=== PATIENT | female | born 1940 | race Caucasian/White ===

== ENCOUNTER 2021-05-01 19:24 | Emergency (ER) | payer MEDICARE ==
--- NOTE | 2021-05-01 19:48 | ERPHSYRPT ---
- History of Present Illness Time Seen by Provider: 05/01/21 19:44 Source: patient, family Exam Limitations: no limitations Patient Subjective Stated Complaint: to er c/o syncopal episode and possible stroke. pt was found outside on the ground per family and was there for unknown amount of time. pt here per EMS with one episode of vomiting and thick oral secretions that pt is having difficulty clearing. Triage Nursing Assessment: pt arrives p/w/d frail, a@ox3. PT has weakness noted to kelli ue though equal, stroke scale negative though pt does have garbled speech present may be due to thick oral secretions pt is having difficulty clearing has required suctioning multiple times. pt very drowsy though easily arousable. dizziness noted with any movement. bbs coarse and exp wheezing noted Physician History: pt was found down in yard by family and reports she was out pulling weeds and got weak. No hx trauma. full ROM without pain for all ext. No wounds. abd soft nontender. Hx lung cancer and has thick secretions. dizziness with motion. Timing/Duration: today Severity: moderate Modifying Factors: Improves With: movement Associated Symptoms: nausea, vomiting Allergies/Adverse Reactions: acetaminophen [From Vicodin] Adverse Reaction (Verified 05/01/21 19:44) hydrocodone [From Vicodin] Adverse Reaction (Verified 05/01/21 19:44) Travel Risk - International Travel Have you traveled outside of the country in past 3 weeks: No - Coronavirus Screening Are you exhibiting any of the following symptoms?: No Close contact with a COVID-19 positive Pt in past 14-21 Days: No - Vaccine Status Have you recieved a Covid-19 vaccination: Yes Csw: [employer] - Vaccination Dates Date of 2cond Vaccination (if applicable): unknown - Review of Systems Constitutional: No Fever, No Chills Eyes: No Symptoms Ears, Nose, & Throat: No Symptoms Respiratory: Cough, Dyspnea Cardiac: No Chest Pain, No Edema, No Syncope Abdominal/Gastrointestinal: No Abdominal Pain, No Nausea, No Vomiting, No Di arrhea Genitourinary Symptoms: No Dysuria Musculoskeletal: No Back Pain, No Neck Pain Skin: No Rash Neurological: No Dizziness, No Focal Weakness, No Sensory Changes Psychological: No Symptoms Endocrine: No Symptoms Hematologic/Lymphatic: No Symptoms Immunological/Allergic: No Symptoms All Other Systems: Reviewed and Negative - Past Medical History Neurological History: No Pertinent History Cardiac History: Hypertension Respiratory History: No Pertinent History Endocrine Medical History: No Pertinent History Musculoskeletal History: No Pertinent History Other Medical History: LUNG CA W/ L LOWER LOBE 1/3 RESECTION 2005; PT. HAS FEMORAL ARTERY STENT W/ REPLACEMENT 2014; AORTIC ROOT STABILIZATION - Past Surgical History Past Surgical History: No - Social History Smoking Status: Former smoker Drug Use: none - Nursing Vital Signs Nursing Vital Signs: Initial Vital Signs Temperature 96.8 F 05/01/21 19:25 Pulse Rate 67 05/01/21 19:25 Respiratory Rate 18 05/01/21 19:25 Blood Pressure 186/113 05/01/21 19:25 O2 Sat by Pulse Oximetry 89 L 05/01/21 19:25 - Physical Exam General Appearance: moderate distress, alert Eye Exam: PERRL/EOMI, eyes nml inspection Ears, Nose, Throat Exam: normal ENT inspection, TMs normal, pharynx normal, moist mucous membranes Neck Exam: normal inspection, non-tender, supple, full range of motion Respiratory Exam: airway intact, prolonged expirations, rhonchi, wheezing, No respiratory distress Cardiovascular Exam: regular rate/rhythm, normal heart sounds, normal peripheral pulses, tachycardia Gastrointestinal/Abdomen Exam: soft, normal bowel sounds, No tenderness, No mass Pelvic Exam: deferred Rectal Exam: deferred Back Exam: normal inspection, normal range of motion, No CVA tenderness, No vertebral tenderness Extremity Exam: normal inspection, normal range of motion, pelvis stable Neurologic Exam: alert, oriented x 3, cooperative, normal mood/affect, nml cerebellar function, nml station & gait, sensation nml, No motor deficits Skin Exam: normal color, warm, dry, No rash Lymphatic Exam: No adenopathy SpO2 Interpretation: hypoxic SpO2: 89 O2 Delivery: Room Air - Course Nursing assessment & vital signs reviewed: Yes EKG Interpreted by Me: Sinus Rhythm, Non-specific ST Changes, Other (apcs lvh) - CT Exams Head CT Interpretation: Tele-radiologist Report, Other (small intracrainial bleeds) Ordered Tests: Active Orders 24 hr Category Date Time Status Ceramics Test Engineer STAT Care 05/01/21 19:51 Active EKG-ER Only STAT Care 05/01/21 19:49 Active IV Insertion STAT Care 05/01/21 19:49 Active NPO (ED) STAT Care 05/01/21 19:49 Active Oxygen-ED Only Nasal Cannula 3 lpm Care 05/01/21 19:50 Active CHEST WITH CONTRAST [CT] Stat Exams 05/01/21 19:48 Taken HEAD WITHOUT CONTRAST [CT] Stat Exams 05/01/21 19:48 Taken CBC W DIFF Stat Lab 05/01/21 20:11 Completed CMP Stat Lab 05/01/21 20:11 Completed D-DIMER QUANTITATIVE Stat Lab 05/01/21 20:11 Completed FECAL OCCULT BLOOD - SCREENING Stat Lab 05/01/21 Ordered Lactic Acid Stat Lab 05/01/21 20:02 Completed NT PRO BNP Routine Lab 05/01/21 20:11 Completed TROPONIN Q3H Lab 05/01/21 20:11 Completed TROPONIN Q3H Lab 05/01/21 23:00 Ordered TROPONIN Q3H Lab 05/02/21 02:00 Ordered TROPONIN Q3H Lab 05/02/21 05:00 Ordered TROPONIN Q3H Lab 05/02/21 08:00 Ordered UA W/RFX UR CULTURE Stat Lab 05/01/21 19:50 Ordered Respiratory Therapy Assessment DAILY RT 05/01/21 19:58 Completed Medication Summary Generic Name Dose Route Start Last Admin Trade Name Freq PRN Reason Stop Dose Admin Sodium Chloride 1,000 mls @ 100 mls/hr 05/01/21 20:00 05/01/21 20:23 Sodium Chloride 0.9% 1000 Ml IV 05/31/21 19:59 100 mls/hr .Q10H ABBEY Administration Nicardipine HCl 25 mg/ Sodium 250 mls @ 0 mls/hr 05/01/21 21:30 Chloride IV 05/31/21 21:29 .Q0M PRN TITRATE FOR BLOOD PRESSURE Protocol Titrate Discontinued Medications Generic Name Dose Route Start Last Admin Trade Name Freq PRN Reason Stop Dose Admin Albuterol/Ipratropium 3 ml 05/01/21 19:50 05/01/21 20:04 Duoneb 0.5-3 Mg/3 Ml Neb IH 05/01/21 19:51 3 ml STAT ONE Administration Albuterol/Ipratropium Confirm 05/01/21 19:58 Duoneb 0.5-3 Mg/3 Ml Neb Administered 05/01/21 19:59 Dose 3 ml IH .STK-MED ONE Methylprednisolone Sodium 0 mg 05/01/21 19:50 05/01/21 20:24 Succinate 125 mg/ Sterile IV 05/01/21 19:51 125 mg Water 2 ml STAT ONE Administration Sodium Chloride Confirm 05/01/21 21:32 Sodium Chloride 0.9% 250 Ml Administered 05/01/21 21:33 Dose 250 mls @ ud IV .STK-MED ONE Methylprednisolone Sodium Succinate Confirm 05/01/21 20:22 Solu-Medrol Administered 05/01/21 20:23 Dose 125 mg .ROUTE .STK-MED ONE Nicardipine HCl Confirm 05/01/21 21:29 Cardene 25 Mg/10 Ml Administered 05/01/21 21:30 Dose 25 mg IV .STK-MED ONE Ondansetron HCl Confirm 05/01/21 20:22 Zofran 4 Mg/2 Ml Vial Administered 05/01/21 20:23 Dose 4 mg .ROUTE .STK-MED ONE Ondansetron HCl 4 mg 05/01/21 21:28 05/01/21 21:28 Zofran 4 Mg/2 Ml Vial IV 05/01/21 21:29 4 mg STAT ONE Administration Sterile Water Confirm 05/01/21 20:22 Sterile H2o 10 Ml Administered 05/01/21 20:23 Dose 10 ml IJ .STK-MED ONE Lab/Rad Data: Laboratory Result Diagrams 05/01/21 20:11 05/01/21 20:11 Laboratory Results 05/01/21 05/01/21 05/01/21 Range/Units 20:11 20:11 20:11 WBC (4.0-10.5) K/mm3 RBC (4.1-5.4) M/mm3 Hgb (12.0-16.0) gm/dl Hct (35-47) % MCV (78-100) fl MCH (26-32) pg MCHC (32-36) g/dl RDW (11.5-14.0) % Plt Count (150-450) K/mm3 MPV (7.5-11.0) fl Gran % (36.0-66.0) % Eos # (Auto) (0-0.5) Absolute Lymphs (auto) (1.0-4.6) Absolute Monos (auto) (0.0-1.3) Lymphocytes % (24.0-44.0) % Monocytes % (0.0-12.0) % Eosinophils % (0.00-5.0) % Basophils % (0.0-0.4) % Absolute Granulocytes (1.4-6.9) Basophils # (0-0.4) D-Dimer 6839 H* (215-500) ng/mL Sodium 140 (137-145) mmol/L Potassium 3.5 (3.5-5.1) mmol/L Chloride 98 (98-107) mmol/L Carbon Dioxide 32 H (22-30) mmol/L Anion Gap 13.6 (5-15) MEQ/L BUN 22 H (7-17) mg/dL Creatinine 0.74 (0.52-1.04) mg/dL Estimated GFR > 60.0 ML/MIN Glucose 189 H (74-106) mg/dL Lactic Acid (0.4-2.0) Calcium 9.8 (8.4-10.2) mg/dL Total Bilirubin 0.70 (0.2-1.3) mg/dL AST 50 H (14-36) U/L ALT 22 (0-35) U/L Alkaline Phosphatase 59 (38-126) U/L Troponin I < 0.012 (0.000-0.034) ng/mL NT-Pro-B Natriuret Pep 2870 H (0-1800) pg/mL Serum Total Protein 7.4 (6.3-8.2) g/dL Albumin 4.6 (3.5-5.0) g/dL 05/01/21 05/01/21 Range/Units 20:11 20:02 WBC 8.9 (4.0-10.5) K/mm3 RBC 4.98 (4.1-5.4) M/mm3 Hgb 15.3 (12.0-16.0) gm/dl Hct 49.1 H (35-47) % MCV 98.6 (78-100) fl MCH 30.7 (26-32) pg MCHC 31.2 L (32-36) g/dl RDW 13.8 (11.5-14.0) % Plt Count 175 (150-450) K/mm3 MPV 9.5 (7.5-11.0) fl Gran % 82.0 H (36.0-66.0) % Eos # (Auto) 0.03 (0-0.5) Absolute Lymphs (auto) 0.99 L (1.0-4.6) Absolute Monos (auto) 0.58 (0.0-1.3) Lymphocytes % 11.1 L (24.0-44.0) % Monocytes % 6.5 (0.0-12.0) % Eosinophils % 0.3 (0.00-5.0) % Basophils % 0.1 (0.0-0.4) % Absolute Granulocytes 7.32 H (1.4-6.9) Basophils # 0.01 (0-0.4) D-Dimer (215-500) ng/mL Sodium (137-145) mmol/L Potassium (3.5-5.1) mmol/L Chloride (98-107) mmol/L Carbon Dioxide (22-30) mmol/L Anion Gap (5-15) MEQ/L BUN (7-17) mg/dL Creatinine (0.52-1.04) mg/dL Estimated GFR ML/MIN Glucose (74-106) mg/dL Lactic Acid 1.6 (0.4-2.0) Calcium (8.4-10.2) mg/dL Total Bilirubin (0.2-1.3) mg/dL AST (14-36) U/L ALT (0-35) U/L Alkaline Phosphatase (38-126) U/L Troponin I (0.000-0.034) ng/mL NT-Pro-B Natriuret Pep (0-1800) pg/mL Serum Total Protein (6.3-8.2) g/dL Albumin (3.5-5.0) g/dL - Progress Progress: improved, re-examined Progress Note: 05/01/21 20:33 re-exam noted some weakness on left side - so stroke alert is called. and NIH scale and neuro consult placed.and CT expedited. 05/01/21 20:42 discussed with neuro and NIH score is 3 . 05/01/21 21:37 discussed with Neuro and ER DrAakash at and pt and will transfer for definitive care with chaitanya blair to control BP. Discussed with DrAakash: Other (Dr. Lopez at [facility]) Will see patient in: ED Counseled pt/family regarding: lab results, diagnosis, need for follow-up, rad results - Departure Departure Disposition: Transfer Clinical Impression: ICH (intracerebral hemorrhage) Condition: Good Critical Care Time: Yes Critical Care Time(excluding separately billable procedures): Critical 30-74 mins (60 minutes plus for CVA protocol) Referrals: LEAH PUENTE [Primary Care Provider] -
[2021-05-01] MEDS ORDERED: solu-MEDROL 125 MG, Sterile H2O 10 ml 2 ML IV ONE ×2 (19:50)
[2021-05-01] MEDS ORDERED: DUONEB 0.5-3 MG/3 ml Neb IH ONE ×2 (19:50→19:58)
[2021-05-01] MEDS ORDERED: Sodium Chloride 0.9% 1000 ML 1,000 ML IV SCH (20:00)
[2021-05-01 20:17] LABS: Absolute Neutrophil Ct (ANC) 7.32 (1.4-6.9); BASOPHIL % 0.1 % (0.0-0.4); Basophil (Absolute #) 0.01 (0-0.4); Eosinophil % 0.3 % (0.00-5.0); Eosinophil (Absolute #) 0.03 (0-0.5); Hematocrit 49.1 % (35-47); Hemoglobin 15.3 gm/dl (12.0-16.0); Lymphocyte (Absolute #) 0.99 (1.0-4.6); Lymphocytes % 11.1 % (24.0-44.0); Mean Cell Volume 98.6 fl (78-100); Mean Corpuscular Hemoglobin 30.7 pg (26-32); Mean Corpuscular Hgb Concent. 31.2 g/dl (32-36); Mean Platelet Volume 9.5 fl (7.5-11.0); Monocyte (Absolute #) 0.58 (0.0-1.3); Monocytes % 6.5 % (0.0-12.0); Platelet Count 175 K/mm3 (150-450); Red Blood Count 4.98 M/mm3 (4.1-5.4); Red Cell Distribution Width 13.8 % (11.5-14.0); White Blood Count 8.9 K/mm3 (4.0-10.5)
[2021-05-01] MEDS ORDERED: Zofran 4 MG/2 ML VIAL ONE (20:22)
[2021-05-01] MEDS ORDERED: Sterile H2O 10 ml IJ ONE (20:22)
[2021-05-01] MEDS ORDERED: Sodium Chloride 0.9% 1000 ML 1,000 ML ONE (20:22)
[2021-05-01] MEDS ORDERED: solu-MEDROL ONE (20:22)
[2021-05-01 20:26] LABS: ALBUMIN 4.6 g/dL (3.5-5.0); ALKALINE PHOSPHATASE 59 U/L (38-126); ANION GAP 13.6 MEQ/L (5-15); BLOOD UREA NITROGEN 22 mg/dL (7-17); CHLORIDE 98 mmol/L (98-107); Calcium 9.8 mg/dL (8.4-10.2); Carbon Dioxide 32 mmol/L (22-30); Creatinine 1 0.74 mg/dL (0.52-1.04); EST GLOMERULAR FILTRATION RATE > 60.0 ML/MIN; Glucose 189 mg/dL (74-106); Potassium 3.5 mmol/L (3.5-5.1); SGOT/AST 50 U/L (14-36); SGPT/ALT 22 U/L (0-35); SODIUM 140 mmol/L (137-145); Total Protein 7.4 g/dL (6.3-8.2)
[2021-05-01 20:54] LABS: NT PRO BNP 2870 pg/mL (0-1800); TROPONIN < 0.012 ng/mL (0.000-0.034)
[2021-05-01] MEDS ORDERED: Zofran 4 MG/2 ML VIAL IV ONE (21:28)
[2021-05-01] MEDS ORDERED: CARDENE 25 MG/10 ML IV ONE (21:29)
[2021-05-01] MEDS ORDERED: CARDENE 25 MG/10 ML*** 25 MG in Sodium Chloride 0.9% 250 ML 240 ML IV PRN (21:30)
[2021-05-01] MEDS ORDERED: Sodium Chloride 0.9% 250 ML 250 ML IV ONE ×2 (21:32→21:43)
[2021-05-01 21:39] VITALS: O2SAT 89
[2021-05-01 21:59] VITALS: BP 168/88; PULSE 74
--- NOTE | 2021-05-02 07:20 | XRAY ---
Indication: Found on ground. Stroke. Multiple contiguous axial images obtained through the head without contrast. Comparison: None Age-appropriate global atrophy and moderate periventricular degenerative micro-ischemia bilaterally. 1.1 x 1.0 x 0.9 cm acute parenchymal hemorrhage in the right posterior temporal lobe. Additional 0.9 x 1.6 x 1.1 cm acute parenchymal hemorrhage left cerebellum. No mass effect/midline shift. Fourth ventricle is midline without hydrocephalus. Bony calvarium intact. Visualized paranasal sinuses and mastoid air cells are clear. Impression: 1. Small acute parenchymal hemorrhage right temporal lobe and left cerebellum. 2. Age-related atrophy and degenerative micro-ischemia. Comment: Preliminary interpretation made by C. No critical discrepancy.
--- NOTE | 2021-05-02 07:26 | XRAY ---
Indication: Elevated d-dimer. Multiple contiguous axial images obtained through the chest using 80 cc Isovue-370 contrast and PE protocol. Comparison: None There is satisfactory opacification of the pulmonary arteries to include the lobar and segmental branches. No pulmonary embolus. Enlarged main pulmonary arteries favor pulmonary artery hypertension. Heart is enlarged. Aorta is moderately arteriosclerotic without aneurysm/dissection. No pathologic mediastinal/hilar lymphadenopathy. Right lower lobe bronchi included with fluid leveling, probable mucous plugging. Lungs demonstrate marked diffuse pulmonary emphysema, tiny calcified granulomas bilaterally, and scattered subsegmental atelectasis/scarring greatest right lower lobe. No infiltrates or effusion. Bony thorax demonstrates osteopenia, mild/moderate degenerative changes throughout the spine, and sternal fixation plate/wires. Limited upper abdomen unremarkable. Impression: 1. Negative pulmonary embolus. Incidental pulmonary artery hypertension. 2. Bronchial occlusion right lower lobe with fluid leveling, probable mucous plugging. Endobronchial mass not completely excluded. 3. Pulmonary emphysema, atelectasis/scarring, chronic bony findings, and old granulomatous disease. Comment: Preliminary interpretation made by [facility]. No critical discrepancy.
== END 2021-05-01 22:00 | disposition short-term general hospital (02) ==
LOC: ED 19:24
DX: I62.9 Nontraumatic intracranial hemorrhage, unspecified (principal); I10 Essential (primary) hypertension
CPT/HCPCS: 36415; 70450; 71260; 80053; 83605; 83880; 84484; 85025; 85379; 94640; 96374; 96375; 99284; 99291; J2405; J2930; A9270-GY

== ENCOUNTER 2022-10-19 12:45 | Emergency (ER) | payer MEDICARE ==
--- NOTE | 2022-10-19 12:47 | ERPHSYRPT ---
- History of Present Illness Time Seen by Provider: 10/19/22 12:47 Source: patient, EMS Exam Limitations: no limitations Physician History: This is an 82-year-old white female patient who is a resident at [facility]. 3 days ago, the patient fell hitting her head, left side of her face and ear and complains of headache, neck pain, left shoulder pain and left hip pain. Patient states there was not much pain and she was ambulating and moving around fine and that is why she did not come in on the day she fell 3 days ago. However, over the last few days her symptoms of pain have worsened. Patient has a history of spontaneous intracranial head bleeds as well. She is not on any anticoagulation but apparently takes a baby aspirin daily. She has a history of stroke, hypertension, peripheral vascular disease and oxygen dependent COPD. Patient currently denies chest pain or shortness of breath. She has no abdominal pain. Occurred: days ago (3) Reason for Fall: unknown Injuries/Pain Location: head, face (Left side), neck (Left side), upper extremity (Left shoulder), lower extremity (Left hip) Loss of Consciousness: no loss of consciousness Quality: aching Severity of Pain-Max: mild Severity of Pain-Current: mild (To moderate) Modifying Factors: Improves With: movement Associated Symptoms (Fall): extremity injury (Left hip), neck pain, trouble walking Allergies/Adverse Reactions: acetaminophen [From Vicodin] Adverse Reaction (Verified 10/19/22 13:25) hydrocodone [From Vicodin] Adverse Reaction (Verified 10/19/22 13:25) Travel Risk - International Travel Have you traveled outside of the country in past 3 weeks: No - Coronavirus Screening Are you exhibiting any of the following symptoms?: No Close contact with a COVID-19 positive Pt in past 14-21 Days: No - Vaccine Status Have you recieved a Covid-19 vaccination: Yes 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: [employer] - Vaccination Dates Date of 2cond Vaccination (if applicable): unknown - Review of Systems Constitutional: No Symptoms Eyes: No Symptoms Ears, Nose, & Throat: No Symptoms Respiratory: No Symptoms Cardiac: No Symptoms Abdominal/Gastrointestinal: No Symptoms Genitourinary Symptoms: No Symptoms Musculoskeletal: Fall, Injury (Left hip and left shoulder) Skin: Other (Ecchymosis swelling left side of her face left ear left lateral neck) Neurological: Headache Psychological: No Symptoms Endocrine: No Symptoms Hematologic/Lymphatic: No Symptoms Immunological/Allergic: No Symptoms All Other Systems: Reviewed and Negative - Past Medical History Pertinent Past Medical History: Yes Neurological History: Stroke Cardiac History: Hypertension, Peripheral Vascular Disease Respiratory History: COPD, Other Endocrine Medical History: No Pertinent History Musculoskeletal History: Fractures Other Medical History: HX OF LUNG CANCER WITH 1/3 LEFT LOWER LOBE RESECTION. HX OF FEMORAL ARTER STENT AND AORTIC ROOT STABILIZATION 2014. ? STROKE IN 04/2021. WAS FOUND IN YARD WITH GARBLED SPEECH BUT NO RESIDUAL. HX - Past Surgical History Past Surgical History: Yes Respiratory: Lobectomy - Social History Smoking Status: Former smoker Drug Use: none - Nursing Vital Signs Nursing Vital Signs: Initial Vital Signs Temperature 97.1 F 10/19/22 12:53 Pulse Rate 91 H 10/19/22 12:53 Blood Pressure 147/68 10/19/22 12:53 O2 Sat by Pulse Oximetry 91 L 10/19/22 12:53 Pain Scale Pain Intensity 0 - Zack Coma Score Best Eye Response ([place]): (4) open spontaneously Best Verbal Response ([place]): (5) oriented Best Motor Response (Zack): (6) obeys commands Zack Total: 15 - Physical Exam General Appearance: no apparent distress, alert, anxiety, cachetic Head Injury: tenderness (Left side of head) Eye Exam: PERRL/EOMI, eyes nml inspection ENT Exam: airway nml, nml ext.inspection, No evidence of ENT injury Neck Exam: supple, trachea midline, full range of motion, normal alignment, muscle spasm (Left paraspinous muscle), pain on movement of neck (Left side), tenderness (Left lateralParaspinous muscle with ecchymosis present laterally on the left side), No subcutaneous emphysema, No c-collar in place Respiratory/Chest Exam: chest tenderness, normal breath sounds, No respiratory distress, No ecchymosis, No crepitus Cardiovascular Exam: normal heart sounds, regular rate/rhythm Gastrointestinal Exam: soft, normal bowel sounds, No tenderness Rectal Exam: not done Back Exam: normal inspection, normal range of motion, No CVA tenderness, No vertebral tenderness Extremity Exam: normal inspection, limited range of motion (Secondary to left hip pain), hip tenderness (Left), tenderness (Left shoulder with ecchymosis) Neurologic Exam: alert, oriented x 3, cooperative, credit representative II-XII nml as tested, normal mood/affect Skin Exam: ecchymosis (Skin as stated above) SpO2 Interpretation: hypoxic O2 Delivery: Room Air (Patient wears 2 to 4 L of oxygen via nasal cannula. She has been weaning herself off of this oxygen and presented without oxygen in place. Patient has COPD that is supposed to be treated with oxygen and she has not been wearing it.) - Course Nursing assessment & vital signs reviewed: Yes Ordered Tests: Active Orders 24 hr Category Date Time Status CERVICAL SPINE WO CONTRAST [CT] Stat Exams 10/19/22 12:56 Completed FACIAL BONES WO CONTRAST [CT] Stat Exams 10/19/22 12:56 Completed HEAD WITHOUT CONTRAST [CT] Stat Exams 10/19/22 12:56 Completed HIP UNI (2V) INCL PEL IF DONE Stat Exams 10/19/22 13:05 Completed SHOULDER Stat Exams 10/19/22 13:05 Completed - Progress Progress: pain not gone completely, re-examined Progress Note: 10/19/22 14:18 X-ray of left shoulder shows no fracture and no dislocation. X-ray left hip shows no fracture or dislocation. CT scan of head without contrast shows a nonacute senile brain. CT scan of facial bones shows no acute fracture or dislocation. CT scan of cervical spine shows no acute fracture or subluxation. There are multiple levels of degenerative changes. This patient's medical issues were 1 of moderate complexity given the fact that the patient has fallen and there were several different areas of pain and swelling and ecchymosis. Based on the patient's complaint and review of the patient's medical history and drug allergies and based on the patient's physical findings on examination we opted for the above x-rays. The results of the x- ray reports were reviewed by me. I reviewed these results with the patient. Patient has no acute fracture or acute subluxation/dislocation of the areas that were x-rayed. Patient will be discharged back to her nursing facility without changes to her orders. Counseled pt/family regarding: diagnosis, need for follow-up, rad results Medical Desision Making - Independent Historian Additional History obtained from: Shipping Receiving Clerk/EMT - External Record(s) Reviewed Records reviewed as a part of evaluation & management: halfway - Discussion of managment Reviewed:: Test results Agreed on:: Treatment plan - Diagnostic Testing Radiological Interpretation: Reviewed by me, Teleradiologist Report - Risk of complications Low Risk: Low risk of morbidity from additional dx testing or treatment - Departure Departure Disposition: Home Clinical Impression: Fall with injury, Multiple contusions, Ecchymosis Condition: Stable Critical Care Time: No Referrals: MIKIE BLANCHARD OF [Primary Care Provider] - Follow up/PCP as directed Additional Instructions: Continue same orders. Follow-up with primary care physician for further evaluation management.
--- NOTE | 2022-10-19 13:33 | XRAY ---
Indication: Status post fall. Multiple contiguous axial images obtained through the head without contrast. Comparison: May 01, 2021 Again age-appropriate global atrophy with moderate periventricular degenerative micro-ischemia bilaterally. No acute intracranial hemorrhage, abnormal extra-axial fluid collection, or mass effect. Fourth ventricle is midline without hydrocephalus. Bony calvarium intact. Visualized paranasal sinuses and mastoid air cells are clear. Impression: Nonacute senile brain.
--- NOTE | 2022-10-19 13:37 | XRAY ---
Indication: Status post fall. Left scalp and facial hematoma. Multiple contiguous axial images obtained through the cervical spine. Sagittal and coronal reformatted images obtained. Comparison: None Several images are slightly degraded by motion artifact. Osseous structures demineralized. Axial images grossly negative for acute fracture, suspicious bony lesions, or spinal canal stenosis. C2-C3 congenital fusion. Mild/moderate multilevel degenerative endplate spurring. Facets are symmetric. Sagittal and coronal reformatted images demonstrates mild lordotic reversal centered at C3-C4. C3-C7 disc space loss. No acute compression fracture, subluxation, or jumped facet. Normal appearing craniocervical junction. Visualized noncontrasted soft tissues demonstrates moderate scattered carotid calcifications bilaterally, biapical postsurgical scarring with suture material, and pulmonary emphysema. Impression: 1. Motion artifact. 2. Cervical lordotic reversal, positional versus paraspinal spasm. Grossly negative acute fracture/subluxation. 3. Osteopenia, multilevel degenerative changes, bilateral carotid calcifications, pulmonary emphysema, and biapical postsurgical changes.
--- NOTE | 2022-10-19 13:39 | XRAY ---
Indication: Status post fall. Left scalp and facial hematoma. Multiple contiguous axial images obtained through the facial bones spine. Sagittal and coronal reformatted images obtained. Comparison: None Osseous structures demineralized. Patient is edentulous. Axial images negative for acute fracture, suspicious bony lesions, or debris foreign body. Orbits including rib, mckoy, and floors are intact. Paranasal sinuses and nasal passages are clear. Mild nasal septal deviation to the right. Visualized noncontrasted soft tissues including orbits are unremarkable. CT head and CT cervical spine reported separately. Impression: Osteopenia and nasal septal deviation. Remaining CT facial bones negative.
--- NOTE | 2022-10-19 13:47 | XRAY ---
Indication: Status post fall. Comparison: None 3 view left shoulder demonstrates osteopenia, tiny pulmonary calcified granulomas, small axillary calcified node, moderate scattered arteriosclerotic calcifications, and partially visualized sternotomy hardware. No other bony, articular, or soft tissue abnormalities.
--- NOTE | 2022-10-19 13:51 | XRAY ---
Indication: Status post fall. Comparison: None AP pelvis and 2 view left hip obtained on cart demonstrates osteopenia, left total hip arthroplasty with intact bipolar prosthesis, incompletely visualized aortobiiliac stent grafts, left pelvic vascular coils, and moderate scattered vascular calcifications. No other bony, articular, or soft tissue abnormalities.
[2022-10-19 14:18] VITALS: BP 151/101; PULSE 88; O2SAT 91
== END 2022-10-19 14:45 | disposition home or self-care (01) ==
LOC: ED 12:45
DX: S10.93XA Contusion of unspecified part of neck, initial encounter (principal); S40.012A Contusion of left shoulder, initial encounter; W19.XXXA Unspecified fall, initial encounter; R51.9 Headache, unspecified; M25.552 Pain in left hip; I10 Essential (primary) hypertension; Z79.899 Other long term (current) drug therapy
CPT/HCPCS: 70450; 70486; 72125; 73030; 73502; 99283

== ENCOUNTER 2022-11-02 17:38 | Emergency (ER) | payer MEDICARE ==
--- NOTE | 2022-11-02 17:55 | ERPHSYRPT ---
- History of Present Illness Time Seen by Provider: 11/02/22 17:55 Source: patient Exam Limitations: no limitations Physician History: This is an 82-year-old white female who slipped on the floor hitting her head without loss of consciousness. She also complained of mild neck pain and left shoulder pain. Patient specifically states she does not have chest pain or shortness of breath at the time of my examination. She has no complaints of pain anywhere else on her body. Patient has a history of hypertension, hyperlipidemia, CVA, COPD, peripheral vascular disease and coronary artery disease in the past (cardiac stent). Occurred: this afternoon Reason for Fall: slipped Injuries/Pain Location: head, upper extremity (Left shoulder) Loss of Consciousness: no loss of consciousness Quality: aching Severity of Pain-Max: mild Severity of Pain-Current: mild Modifying Factors: Improves With: movement Associated Symptoms (Fall): extremity injury (Left shoulder), headache (Mild), No abdominal pain, No back pain, No confusion, No chest pain, No dizziness, No neck pain (Mild), No slurred speech Allergies/Adverse Reactions: acetaminophen [From Vicodin] Adverse Reaction (Verified 11/02/22 17:42) hydrocodone [From Vicodin] Adverse Reaction (Verified 11/02/22 17:42) Home Medications: Albuterol Sulfate [Albuterol Sulfate Hfa] 2 puffs IH Q4HPRN PRN 10/19/22 [History] Aspirin EC 81 mg [Ecotrin 81 mg] 81 mg PO DAILY 10/19/22 [History] Atorvastatin Calcium [Lipitor 40Mg] 40 mg PO HS 10/19/22 [History] Furosemide [Lasix] 80 mg PO BID 10/19/22 [History] Losartan Potassium [Cozaar] 12.5 mg PO DAILY 10/19/22 [History] Magnesium Oxide 400 mg [Mag-Ox 400] 400 mg PO HS 10/19/22 [History] Memantine HCl 5 mg [Namenda 5 MG] 5 mg PO BID 10/19/22 [History] Metoprolol Tartrate 25 mg [Lopressor 25MG Tab] 12.5 mg PO BID 10/19/22 [History] Potassium Chloride 10 meq PO BID 10/19/22 [History] Tramadol HCl 50 mg [Ultram 50 mg] 25 mg PO Q8H PRN 10/19/22 [History] Hx Influenza Vaccination/Date Given: Yes Hx Pneumococcal Vaccination/Date Given: Yes Travel Risk - International Travel Have you traveled outside of the country in past 3 weeks: No - Coronavirus Screening Are you exhibiting any of the following symptoms?: No Close contact with a COVID-19 positive Pt in past 14-21 Days: No - Vaccine Status Have you recieved a Covid-19 vaccination: Yes 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: [employer] - Vaccination Dates Date of 2cond Vaccination (if applicable): unknown - Review of Systems Constitutional: No Symptoms Eyes: No Symptoms Ears, Nose, & Throat: No Symptoms Respiratory: No Symptoms Cardiac: No Symptoms Abdominal/Gastrointestinal: No Symptoms Genitourinary Symptoms: No Symptoms Musculoskeletal: Neck Pain (Mild), Fall, Injury (Left shoulder) Skin: Other (Ecchymosis left shoulder) Neurological: Headache Psychological: No Symptoms Endocrine: No Symptoms Hematologic/Lymphatic: No Symptoms Immunological/Allergic: No Symptoms All Other Systems: Reviewed and Negative - Past Medical History Pertinent Past Medical History: Yes Neurological History: Stroke Cardiac History: Hypertension, Peripheral Vascular Disease Respiratory History: COPD, Other Endocrine Medical History: No Pertinent History Musculoskeletal History: Fractures Other Medical History: HX OF LUNG CANCER WITH 1/3 LEFT LOWER LOBE RESECTION. HX OF FEMORAL ARTER STENT AND AORTIC ROOT STABILIZATION 2014. ? STROKE IN 04/2021. WAS FOUND IN YARD WITH GARBLED SPEECH BUT NO RESIDUAL. HX - Past Surgical History Past Surgical History: Yes Cardiac: Cardiac Stent Respiratory: Lobectomy - Social History Smoking Status: Former smoker Exposure to second hand smoke: No Drug Use: none Patient Lives Alone: No - Nursing Vital Signs Nursing Vital Signs: Initial Vital Signs Temperature 97.5 F 11/02/22 17:41 Pulse Rate 45 L 11/02/22 17:41 Respiratory Rate 18 11/02/22 17:41 Blood Pressure 145/62 11/02/22 17:41 O2 Sat by Pulse Oximetry 90 L 11/02/22 17:41 Pain Scale Pain Intensity 5 - [place] Coma Score Best Eye Response (Zack): (4) open spontaneously Best Verbal Response ([place]): (5) oriented Best Motor Response (Zack): (6) obeys commands Zack Total: 15 - Physical Exam General Appearance: no apparent distress, alert, anxiety Head Injury: no evidence of injury Eye Exam: PERRL/EOMI, eyes nml inspection ENT Exam: airway nml, nml ext.inspection, No evidence of ENT injury Neck Exam: supple, trachea midline, full range of motion, normal alignment, normal inspection Respiratory/Chest Exam: normal breath sounds, No chest tenderness, No respiratory distress, No ecchymosis, No crepitus Cardiovascular Exam: normal heart sounds, regular rate/rhythm, normal peripheral pulses, No murmur Gastrointestinal Exam: soft, normal bowel sounds, No tenderness Rectal Exam: not done Back Exam: normal inspection, normal range of motion, No CVA tenderness, No vertebral tenderness Extremity Exam: normal range of motion, evidence of injury (Ecchymosis left shoulder), No deformities Neurologic Exam: alert, oriented x 3, cooperative, 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 There is no acute fracture or dislocation. Cervical spine CT without contrast shows no acute fracture or subluxation. The re are degenerative changes. CT head without contrast shows no acute intracranial abnormality. It is a nonacute senile brain This patient has medical issues that are of low to moderate complexity. The medical complexity and work-up obtained was based on review of the patient's past medical history, medication list, drug allergy list, history of present illness and physical findings on examination. The work-up performed includes plain x-ray left shoulder, CT scan of cervical spine and a CT scan of the head. Both CTs are without contrast. I reviewed the radiologist report for the CAT scans. There are no acute findings. Discharge planning is to have the patient be discharged to home and instructed to continue her medication as prescribed. She is to avoid any sedating medications overnight. Counseled pt/family regarding: diagnosis, need for follow-up, rad results Medical Desision Making - Discussion of managment Reviewed:: Test results Agreed on:: Treatment plan - Diagnostic Testing Radiological Interpretation: Interpreted by me, Reviewed by me, Teleradiologist Report - Risk of complications Low Risk: Low risk of morbidity from additional dx testing or treatment - Departure Departure Disposition: Home Clinical Impression: Fall with no significant injury, Contusion Condition: Stable Critical Care Time: No Referrals: MIKIE BLANCHARD OF [Primary Care Provider] - Follow up/PCP as directed Additional Instructions: Hold all your sedating medications for 24 hours. Follow-up with your primary care doctor for further evaluation and management. Call them tomorrow morning, 11/03/2022.
[2022-11-02 21:09] VITALS: BP 134/73; PULSE 84; O2SAT 97
--- NOTE | 2022-11-03 08:53 | XRAY ---
Indication: Status post fall. Multiple contiguous axial images obtained through the head without contrast. Comparison: October 19, 2022 Stable age-appropriate global atrophy and moderate periventricular degenerative micro-ischemia bilaterally. No acute intracranial hemorrhage, abnormal extra-axial fluid collection, or mass effect. Fourth ventricle is midline without hydrocephalus. Bony calvarium intact. Visualized paranasal sinuses and mastoid air cells are clear. Impression: Continued nonacute senile brain.
--- NOTE | 2022-11-03 08:57 | XRAY ---
Indication: Status post fall. Multiple contiguous axial images obtained through the cervical spine. Sagittal and coronal reformatted images obtained. Comparison: October 19, 2022. Stable osteopenia Axial images again negative for acute fracture, suspicious bony lesions, or spinal canal stenosis. Stable C2-C3 congenital fusion and multilevel degenerative endplate spurring. Sagittal and coronal reformatted images again demonstrates lordotic reversal, positional versus paraspinal spasm. Stable C3-C7 disc space loss. No acute compression fracture, subluxation, or jumped facet. Normal appearing craniocervical junction. Visualized noncontrasted soft tissues again demonstrates moderate scattered carotid calcifications bilaterally, pulmonary emphysema, and biapical pulmonary postsurgical scarring with suture material. Impression: Stable CT cervical spine again demonstrating osteopenia, lordotic reversal, multilevel degenerative changes, bilateral carotid calcifications, pulmonary emphysema, and biapical postsurgical changes. No new/acute findings.
--- NOTE | 2022-11-03 08:59 | XRAY ---
Indication: Status post fall. Comparison: June 18, 2023 3 view left shoulder unchanged again demonstrating osteopenia, tiny pulmonary calcified granulomas, small axillary calcified node, arteriosclerotic calcifications, and partially visualized sternotomy hardware. No new/acute abnormalities.
--- NOTE | 2022-11-03 09:01 | XRAY ---
Indication: Status post fall. Comparison: October 19, 2022 AP pelvis and 2 view left hip now demonstrates healing nondisplaced left inferior pubic ramus fracture. Stable osteopenia, left total hip arthroplasty with intact bipolar prosthesis, incompletely visualized aortobiiliac stent grafts, left pelvic vascular coils, right inguinal vascular clips, and scattered vascular calcifications.
== END 2022-11-02 21:48 | disposition home or self-care (01) ==
LOC: ED 17:38
DX: S40.012A Contusion of left shoulder, initial encounter (principal); W01.0XXA Fall on same level from slipping, tripping and stumbling without subsequent striking against object, initial encounter; Y92.129 Unspecified place in nursing home as the place of occurrence of the external cause; M54.2 Cervicalgia; I10 Essential (primary) hypertension; E78.5 Hyperlipidemia, unspecified; Z79.891 Long term (current) use of opiate analgesic; Z79.899 Other long term (current) drug therapy
CPT/HCPCS: 70450; 72125; 73030; 73502; 99283